=== PATIENT | female | born 1950 | race African-American/Black ===

== ENCOUNTER → 2017-10-23 | Outpatient (CLI) | payer MEDICARE, OTHER, MEDICAID ==
[~2017-10-23] MED LIST: ATEN-42 PO; GABA100C PO; HYDR12.54 PO; LOSA25TA12 PO; METO25TA6 PO; SERT25TA PO; SIMV10TA6 PO
== END | disposition home or self-care (01) ==
LOC: RAD 14:39
PROVIDERS: ATTEND Pediatrics
DX: R05 Cough (principal)
CPT/HCPCS: 71046